=== PATIENT | female | born 1980 | race Caucasian/White ===

== ENCOUNTER 2017-09-12 18:34 | Emergency (ER) | payer OTHER ==
[2017-09-12] MEDS ORDERED: SODIUM CHLORIDE 0.9% 1,000 ML IV ONE (19:33)
[2017-09-12] MEDS ORDERED: ONDANSETRON 4 MG/2 ML VIAL IVP STA (19:33)
[2017-09-12] MEDS ORDERED: MAG HYDROX/AL HYDROX/SIMETH 30 ML UDC PO STA (19:33)
[2017-09-12] MEDS ORDERED: LORazepam 2 MG/ML VIAL IVP STA (19:33)
[2017-09-12] MEDS ORDERED: PANTOPRAZOLE 40 MG VIAL IVP STA (19:33)
[2017-09-12] MEDS ORDERED: LIDOCAINE VISCOUS 2% 15 ML UDC MM STA (19:33)
--- NOTE | 2017-09-12 19:35 | ED Physician Documentation ---
History of Present Illness - Stated complaint Stated Complaint: ETOH - Chief complaint Chief Complaint: MHE - History obtained from History obtained from: Patient, Family () - History of Present Illness Timing: Other (She has been trying to Quit drinking. She drinks wine all day. She is developed left upper abdominal pain with vomiting and diarrhea over the last few days and has been trying to cut back on her alcohol but the binges come in waves. She has never had a seizure. Feels shaky and out of it like she is going to . No blood in the vomit or diarrhea.) Review of Systems Ten Systems: 10 systems reviewed and negative Constitutional: reports: Fatigue. denies: Fever, Chills Cardiac: denies: Chest pain / pressure, Palpitations, Pedal edema, Calf pain Respiratory: denies: Dyspnea, Cough PD PAST MEDICAL HISTORY - Present Medications Home Medications: Ambulatory Orders Medication Instructions Recorded Confirmed Control 09/12/17 Lorazepam [Ativan] 1 mg PO TID PRN #15 tablet 09/12/17 Omeprazole [PriLOSEC] 20 mg PO DAILY #14 capsule 09/12/17 Ondansetron HCl [Zofran] 4 mg PO Q6H PRN #10 tablet 09/12/17 - Allergies Allergies/Adverse Reactions: Allergies Allergy/AdvReac Type Severity Reaction Status Date / Time No Known Drug Allergies Allergy Verified 09/12/17 18:45 PD ED PE NORMAL - Vitals Vital signs reviewed: Yes - General General: Alert and oriented X 3 (She is restless and shaky) - HEENT HEENT: PERRL, EOMI, Pharynx benign - Neck Neck: Supple, no meningeal sign, No bony TTP - Cardiac Cardiac: Other (Tachycardia) - Respiratory Respiratory: No respiratory distress, Clear bilaterally - Abdomen Abdomen: Normal bowel sounds, Soft, Non tender - Back Back: No CVA TTP, No spinal TTP - Extremities Extremities: No edema, No calf tenderness / cord - Neuro Neuro: Alert and oriented X 3, Normal speech - Psych Psych: Normal mood, Normal affect Results - Vitals Vitals: Vital Signs - 24 hr 09/12/17 09/12/17 18:39 21:12 Temperature 36.8 C Heart Rate 110 H 105 H Respiratory 22 18 Rate Blood Pressure 149/101 H 139/102 H O2 Saturation 99 98 Oxygen O2 Source Room air - Labs Labs: Laboratory Tests 09/12/17 09/12/17 09/12/17 19:21 19:49 19:49 WBC 3.9 L RBC 4.64 Hgb 15.1 Hct 43.1 MCV 92.9 MCH 32.5 H MCHC 34.9 RDW 12.7 Plt Count 110 L MPV 9.8 Neut # (Auto) 1.4 L Lymph # (Auto) 2.2 [place] # (Auto) 0.3 Eos # (Auto) 0.0 Baso # (Auto) 0.0 Absolute Nucleated RBC 0.00 Nucleated RBC % 0.1 VBG pH VBG pCO2 VBG pO2 VBG HCO3 VBG Total CO2 VBG O2 Saturation VBG Base Excess Sodium 135 Potassium 3.7 Chloride 99 L Carbon Dioxide 20 L Anion Gap 16.0 H BUN 17 Creatinine 0.7 Estimated GFR (MDRD) 95 Glucose 90 Calcium 8.7 Magnesium 2.0 Total Bilirubin 1.4 H AST 273 H ALT 163 H Alkaline Phosphatase 144 H Total Protein 7.5 Albumin 4.0 Globulin 3.5 Albumin/Globulin Ratio 1.1 Lipase 86 H Urine Color YELLOW Urine Clarity CLOUDY Urine pH 6.0 Ur Specific [place] 1.020 Urine Protein TRACE Urine Glucose (UA) NEGATIVE Urine Ketones TRACE Urine Occult Blood TRACE-INTA Urine Nitrite POSITIVE H Urine Bilirubin NEGATIVE Urine Urobilinogen 1 (NORMAL) Ur Leukocyte Esterase SMALL H Urine RBC 0-5 Urine WBC 6-10 H Ur Squamous Epith Cells FEW Squamous Urine Bacteria Moderate H Ur Microscopic Review INDICATED Urine Culture Comments INDICATED Urine HCG, Qual NEGATIVE Ethyl Alcohol 355.9 Serum Ketones NEGATIVE 09/12/17 19:49 WBC RBC Hgb Hct MCV MCH MCHC RDW Plt Count MPV Neut # (Auto) Lymph # (Auto) [place] # (Auto) Eos # (Auto) Baso # (Auto) Absolute Nucleated RBC Nucleated RBC % VBG pH 7.476 H VBG pCO2 28.8 L VBG pO2 45.0 VBG HCO3 20.8 L VBG Total CO2 21.7 L VBG O2 Saturation 76.3 VBG Base Excess -1.4 Sodium Potassium Chloride Carbon Dioxide Anion Gap BUN Creatinine Estimated GFR (MDRD) Glucose Calcium Magnesium Total Bilirubin AST ALT Alkaline Phosphatase Total Protein Albumin Globulin Albumin/Globulin Ratio Lipase Urine Color Urine Clarity Urine pH Ur Specific [place] Urine Protein Urine Glucose (UA) Urine Ketones Urine Occult Blood Urine Nitrite Urine Bilirubin Urine Urobilinogen Ur Leukocyte Esterase Urine RBC Urine WBC Ur Squamous Epith Cells Urine Bacteria Ur Microscopic Review Urine Culture Comments Urine HCG, Qual Ethyl Alcohol Serum Ketones PD MEDICAL DECISION MAKING - ED course ED course: This is a 37-year-old woman presents with her for help with alcohol. She is still intoxicated and she is evidence of alcoholic hepatitis. She felt better after medications for alcoholic gastritis here. She does not have symptoms referrable to UTI so no treatment is given now pending the culture. - Sepsis Event Vital Signs: Vital Signs - 24 hr 09/12/17 09/12/17 18:39 21:12 Temperature 36.8 C Heart Rate 110 H 105 H Respiratory 22 18 Rate Blood Pressure 149/101 H 139/102 H O2 Saturation 99 98 Oxygen O2 Source Room air Departure - Departure Disposition: 01 Home, Self Care Clinical Impression: Alcohol intoxication, Alcoholic liver disease Condition: Good Record reviewed to determine appropriate education?: Yes Instructions: Cirrhosis Liver Dc, ED Alcohol Intoxication, ED Alcohol Abuse Prescriptions: Lorazepam [Ativan] 1 mg PO TID PRN #15 tablet PRN Reason: Anxiety Omeprazole [PriLOSEC] 20 mg PO DAILY #14 capsule Ondansetron HCl [Zofran] 4 mg PO Q6H PRN #10 tablet PRN Reason: Nausea / Vomiting Comments: [place] drinking alcohol[place] for alcohol rehab, another option would be [facility] recovery services in [place], civilian agency. Their phone number is [phone]. Discharge Date/Time: 09/12/17 21:13
[2017-09-12 19:55] LABS: BASOPHILS % (AUTO) 0.7 %; HGB - HEMOGLOBIN 15.1 g/dL (12.0-16.0); LYMPHOCYTES # (AUTO) 2.2 10^3/uL (1.5-3.5); LYMPHOCYTES % (AUTO) 56.1 %; MEAN CORPUSCULAR HEMOGLOBIN 32.5 pg (27.0-31.0); MEAN CORPUSCULAR HGB CONC 34.9 g/dL (32.0-36.0); MEAN CORPUSCULAR VOLUME 92.9 fL (81.0-99.0); MEAN PLATELET VOLUME 9.8 fL (7.9-10.8); MONOCYTES # (AUTO) 0.3 10^3/uL (0.0-1.0); MONOCYTES % (AUTO) 6.5 %; NEUTROPHILS # (AUTO) 1.4 10^3/uL (1.5-6.6); NEUTROPHILS % (AUTO) 36.7 %; PLT - PLATELET COUNT 110 10^3/uL (130-450); RED BLOOD COUNT 4.64 10^6/uL (4.20-5.40); RED CELL DISTRIBUTION WIDTH 12.7 % (12.0-15.0); WHITE BLOOD COUNT 3.9 x10^3/uL (4.8-10.8)
[2017-09-12 19:56] LABS: VBG PCO2 28.8 mmHg (41-51); VBG PH 7.476 (7.31-7.41)
[2017-09-12 19:57] LABS: VBG BASE EXCESS -1.4 mmol/L ([, -2 - +2]); VBG TOTAL CO2 21.7 mmol/L (24-29)
[2017-09-12 20:01] LABS: BILIRUBIN,URINE NEGATIVE (NEGATIVE); GLUCOSE, URINE (UA) NEGATIVE (NEGATIVE); KETONES,URINE (UA) TRACE mg/dL (NEGATIVE); LEUKOCYTE ESTERASE, URINE SMALL (NEGATIVE); NITRITE,URINE POSITIVE (NEGATIVE); OCCULT BLOOD,URINE TRACE-INTA (NEGATIVE); PROTEIN,URINE TRACE mg/dL (NEGATIVE); UROBILINOGEN,URINE 1 (NORMAL) E.U./dL (NORMAL)
[2017-09-12 20:04] LABS: CLARITY,URINE CLOUDY (CLEAR); HCG UR QUAL NEGATIVE
[2017-09-12 20:04] LABS: KETONES, SERUM (ACETEST) NEGATIVE (NEGATIVE)
[2017-09-12 20:07] LABS: ALBUMIN/GLOBULIN RATIO 1.1 (1.0-2.2); ALKALINE PHOSPHATASE 144 IU/L (42-121); ALT ALANINE AMINOTRANSFERASE 163 IU/L (10-60); AST ASPARTATE AMINOTRANSFERASE 273 IU/L (10-42); BILIRUBIN,TOTAL 1.4 mg/dL (0.2-1.0); BUN - BLOOD UREA NITROGEN 17 mg/dL (6-20); CALCIUM 8.7 mg/dL (8.5-10.3); CARBON DIOXIDE - CO2 20 mmol/L (21-32); CHLORIDE 99 mmol/L (101-111); CREATININE 0.7 mg/dL (0.4-1.0); GFR - MDRD 95 (>89); GLUCOSE 90 mg/dL (70-100); LIPASE 86 U/L (22-51); SODIUM 135 mmol/L (135-145); TOTAL PROTEIN 7.5 g/dL (6.7-8.2)
[2017-09-12 20:17] LABS: RBC,URINE 0-5 /HPF (0-5); SQUAMOUS EPITHELIAL CELL,UR FEW Squamous (<= Few)
[2017-09-12 20:18] LABS: BACTERIA,URINE Moderate /HPF (None Seen)
[2017-09-12] MEDS ORDERED: LORazepam 0.5 MG TABLET PO STA (20:53)
[2017-09-12] MEDS ORDERED: ONDANSETRON ODT 4 MG Prepack 2 TL STA (20:53)
[2017-09-12 21:14] VITALS: BP 139/102
== END 2017-09-12 21:13 | disposition home or self-care (01) ==
LOC: ED 18:34
DX: F10.129 Alcohol abuse with intoxication, unspecified (principal); K70.9 Alcoholic liver disease, unspecified; R11.11 Vomiting without nausea; R00.0 Tachycardia, unspecified
CPT/HCPCS: 80053; 80320; 81001; 81025; 82009; 82803; 83690; 83735; 85025; 87086; 87181; 96361; 96374; 99283; A9270; J2060; 36415; 81003

== ENCOUNTER 2017-12-07 01:22 | Emergency (ER) | payer OTHER ==
[2017-12-07] MEDS ORDERED: FOLIC ACID INJ 1 MG, THIAMINE INJ 100 MG, MAGNESIUM SULFATE 2 GM, MULTIVITAMIN 10 ML in... IV STA ×5 (01:55)
--- NOTE | 2017-12-07 01:58 | ED Physician Documentation ---
History of Present Illness - Stated complaint Stated Complaint: DRANK TOO MUCH ALCOHOL - Chief complaint Chief Complaint: MHE - History obtained from History obtained from: Patient - History of Present Illness Timing: How many years ago (1) - Additonal information Additional information: 37-year-old female with an increasing alcohol problem over the past year he has come in this evening for treatment. She states that she has been having a problem with alcohol binges and she feels that when she is sober she does not need help and then she realizes that she really does need help. She has been into a detox facility earlier this year in September and she spent 2 days there felt well and decided to go home as she did not feel that that was a facility that was going to provide her with the help that she needed. She reports that she was sent home from [place] by the because of her drinking and the lack of facilities there to treat. She is come back to the [facility] here at [facility] and she is finding a similar situation here Review of Systems Constitutional: denies: Fever, Chills, Myalgias Eyes: denies: Decreased vision Ears: denies: Ear pain Nose: denies: Congestion Throat: denies: Sore throat Cardiac: denies: Chest pain / pressure, Palpitations Respiratory: denies: Dyspnea, Cough GI: reports: Nausea. denies: Abdominal Pain, Vomiting : denies: Dysuria, Frequency Skin: denies: Rash Musculoskeletal: denies: Neck pain, Back pain, Extremity pain Neurologic: denies: Generalized weakness, Focal weakness, Numbness PD PAST MEDICAL HISTORY - Past Medical History Past Medical History: Yes Cardiovascular: None Respiratory: None Neuro: None Endocrine/Autoimmune: None GI: None MEDICAL SOCIAL WORKER: None : None HEENT: None Psych: Anxiety Musculoskeletal: None Derm: None Other Past Medical History: ALCOHOLISM by admission... 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 - Present Medications Home Medications: Ambulatory Orders Medication Instructions Recorded Confirmed Control 09/12/17 Lorazepam [Ativan] 1 mg PO TID PRN #15 tablet 09/12/17 Omeprazole [PriLOSEC] 20 mg PO DAILY #14 capsule 09/12/17 Ondansetron HCl [Zofran] 4 mg PO Q6H PRN #10 tablet 09/12/17 - Allergies Allergies/Adverse Reactions: Allergies Allergy/AdvReac Type Severity Reaction Status Date / Time No Known Drug Allergies Allergy Verified 12/07/17 01:37 - Social History Does the pt smoke?: No Smoking Status: Never smoker Does the pt drink ETOH?: Yes Does the pt have substance abuse?: Yes Substance Use and Type: Other - Immunizations Immunizations are current?: Yes - POLST Patient has POLST: No PD ED PE NORMAL - Vitals Vital signs reviewed: Yes (tachy ) - General General: Alert and oriented X 3, Well developed/nourished, Other (teary eyed and emotional ) - HEENT HEENT: Atraumatic, PERRL, EOMI - Neck Neck: Supple, no meningeal sign, No bony TTP - Cardiac Cardiac: RRR, No murmur - Respiratory Respiratory: No respiratory distress, Clear bilaterally - Abdomen Abdomen: Soft, Non tender - Back Back: No CVA TTP, No spinal TTP - Derm Derm: Normal color, Warm and dry, No rash - Extremities Extremities: No deformity, No edema - Neuro Neuro: Alert and oriented X 3, toolroom attendant 2-12 intact, No motor deficit, No sensory deficit, Normal speech Eye Opening: Spontaneous Motor: Obeys Commands Verbal: Oriented GCS Score: 15 - Psych Psych: Normal mood, Normal affect Results - Vitals Vitals: Vital Signs - 24 hr 12/07/17 12/07/17 12/07/17 01:34 01:43 02:26 Temperature 36.9 C Heart Rate 109 H 86 Respiratory 18 17 17 Rate Blood Pressure 133/95 H 109/74 O2 Saturation 99 100 12/07/17 12/07/17 12/07/17 02:57 03:30 04:43 Temperature Heart Rate 90 89 88 Respiratory 15 14 14 Rate Blood Pressure 106/71 102/71 105/74 O2 Saturation 95 97 94 12/07/17 12/07/17 12/07/17 05:46 06:19 06:43 Temperature Heart Rate 81 83 Respiratory 13 13 Rate Blood Pressure 111/81 H O2 Saturation 96 95 99 Oxygen O2 Source Room air - Labs Labs: Laboratory Tests 12/07/17 12/07/17 02:03 02:03 WBC 5.4 RBC 4.91 Hgb 15.3 Hct 44.6 MCV 90.8 MCH 31.3 H MCHC 34.4 RDW 13.7 Plt Count 170 MPV 10.1 Neut # (Auto) 2.8 Lymph # (Auto) 2.2 [place] # (Auto) 0.4 Eos # (Auto) 0.0 Baso # (Auto) 0.0 Absolute Nucleated RBC 0.00 Nucleated RBC % 0.0 Sodium 139 Potassium 3.6 Chloride 101 Carbon Dioxide 27 Anion Gap 11.0 BUN 11 Creatinine 0.7 Estimated GFR (MDRD) 95 Glucose 107 H Calcium 8.4 L Total Bilirubin 0.6 AST 65 H ALT 73 H Alkaline Phosphatase 59 Total Protein 7.9 Albumin 4.4 Globulin 3.5 Albumin/Globulin Ratio 1.3 Lipase 26 Ethyl Alcohol 241.1 PD MEDICAL DECISION MAKING - ED course Complexity details: reviewed old records, reviewed results, re-evaluated patient, considered differential, d/w patient ED course: 37 y/o female with a history of alcoholism is requesting services. She is intoxicated and she is administered a banana bag IV and ativan while awaiting the social welfare administrator in the morning. At shift change care of the patient is turned over to Dr. Palacios. Departure - Departure Clinical Impression: Alcohol intoxication Qualifiers: Complication of substance-induced condition: uncomplicated Qualified Code(s): F10.920 - Alcohol use, unspecified with intoxication, uncomplicated Condition: Stable Instructions: ED Alcohol Intoxication Follow-Up: Kevan Mckeon MD [Primary Care Provider] -
[2017-12-07 02:12] LABS: BASOPHILS % (AUTO) 0.7 %; EOSINOPHILS % (AUTO) 0.5 %; HGB - HEMOGLOBIN 15.3 g/dL (12.0-16.0); LYMPHOCYTES # (AUTO) 2.2 10^3/uL (1.5-3.5); LYMPHOCYTES % (AUTO) 40.6 %; MEAN CORPUSCULAR HEMOGLOBIN 31.3 pg (27.0-31.0); MEAN CORPUSCULAR HGB CONC 34.4 g/dL (32.0-36.0); MEAN CORPUSCULAR VOLUME 90.8 fL (81.0-99.0); MEAN PLATELET VOLUME 10.1 fL (7.9-10.8); MONOCYTES # (AUTO) 0.4 10^3/uL (0.0-1.0); MONOCYTES % (AUTO) 6.7 %; NEUTROPHILS # (AUTO) 2.8 10^3/uL (1.5-6.6); NEUTROPHILS % (AUTO) 51.5 %; PLT - PLATELET COUNT 170 10^3/uL (130-450); RED BLOOD COUNT 4.91 10^6/uL (4.20-5.40); RED CELL DISTRIBUTION WIDTH 13.7 % (12.0-15.0); WHITE BLOOD COUNT 5.4 x10^3/uL (4.8-10.8)
[2017-12-07] MEDS ORDERED: KETOROLAC 60 MG/2 ML VIAL IVP STA (02:13)
[2017-12-07] MEDS ORDERED: LORazepam 2 MG/ML VIAL IVP STA (02:13)
[2017-12-07] MEDS ORDERED: MAGNESIUM SULFATE 1 GM/2 ML VIAL ONE (02:23)
[2017-12-07] MEDS ORDERED: THIAMINE 100 MG/1 ML 2 ML MDV ONE (02:27)
[2017-12-07 02:30] LABS: ALBUMIN 4.4 g/dL (3.2-5.5); ALBUMIN/GLOBULIN RATIO 1.3 (1.0-2.2); BILIRUBIN,TOTAL 0.6 mg/dL (0.2-1.0); CALCIUM 8.4 mg/dL (8.5-10.3); CREATININE 0.7 mg/dL (0.4-1.0); TOTAL PROTEIN 7.9 g/dL (6.7-8.2)
[2017-12-07 06:20] VITALS: BP 111/81
[2017-12-07] MEDS ORDERED: LORazepam 0.5 MG TABLET PO STA (09:01)
--- NOTE | 2017-12-23 12:20 | ED Physician Documentation ---
ED Addendum - Addendum Addendum: The patient was doing well on recheck and able to go home. Disposition: discharged home stable condition. 12/23/17 12:20
== END 2017-12-07 11:18 | disposition home or self-care (01) ==
LOC: ED 01:22
DX: F10.129 Alcohol abuse with intoxication, unspecified (principal)
CPT/HCPCS: 36415; 80053; 80320; 83690; 85025; 96365; 96366; 96375; 99283; 99284; A9270; J2060; J3411

== ENCOUNTER 2018-03-12 15:47 | Emergency (ER) | payer OTHER ==
[2018-03-12 16:50] LABS: MUDS CUTOFF CONCENTRATIONS CUTOFF CONC BELOW:
[2018-03-12 16:55] LABS: BILIRUBIN,URINE NEGATIVE (NEGATIVE); GLUCOSE, URINE (UA) NEGATIVE (NEGATIVE); KETONES,URINE (UA) TRACE mg/dL (NEGATIVE); LEUKOCYTE ESTERASE, URINE NEGATIVE (NEGATIVE); NITRITE,URINE NEGATIVE (NEGATIVE); OCCULT BLOOD,URINE NEGATIVE (NEGATIVE); PROTEIN,URINE NEGATIVE (NEGATIVE); UROBILINOGEN,URINE 0.2 (NORMAL) E.U./dL (NORMAL)
[2018-03-12 16:58] LABS: CLARITY,URINE CLEAR (CLEAR); HCG UR QUAL NEGATIVE
[2018-03-12 17:10] LABS: BASOPHILS % (AUTO) 0.8 %; EOSINOPHILS % (AUTO) 0.2 %; HGB - HEMOGLOBIN 15.4 g/dL (12.0-16.0); LYMPHOCYTES # (AUTO) 2.3 10^3/uL (1.5-3.5); LYMPHOCYTES % (AUTO) 40.5 %; MEAN CORPUSCULAR HEMOGLOBIN 30.1 pg (27.0-31.0); MEAN CORPUSCULAR VOLUME 91.2 fL (81.0-99.0); MONOCYTES # (AUTO) 0.3 10^3/uL (0.0-1.0); MONOCYTES % (AUTO) 5.7 %; NEUTROPHILS % (AUTO) 52.8 %; PLT - PLATELET COUNT 156 10^3/uL (130-450); RED BLOOD COUNT 5.12 10^6/uL (4.20-5.40); RED CELL DISTRIBUTION WIDTH 13.6 % (12.0-15.0); WHITE BLOOD COUNT 5.7 x10^3/uL (4.8-10.8)
[2018-03-12 17:19] LABS: AMPHETAMINE SCREEN,URINE NEGATIVE (NEGATIVE); BENZODIAZEPINES SCREEN, URINE NEGATIVE (NEGATIVE); COCAINE SCREEN URINE NEGATIVE (NEGATIVE); METHADONE SCREEN, URINE NEGATIVE (NEGATIVE); METHAMPHETAMINES SCREEN, URINE NEGATIVE (NEGATIVE); OPIATE SCREEN, URINE NEGATIVE (NEGATIVE); OXYCODONE SCREEN, URINE NEGATIVE (NEGATIVE); PROPOXYPHENE SCREEN, URINE NEGATIVE (NEGATIVE); TRICYCLIC ANTIDEPRESSANT,URINE NEGATIVE (NEGATIVE)
[2018-03-12 17:23] LABS: ALBUMIN 4.4 g/dL (3.2-5.5); ALBUMIN/GLOBULIN RATIO 1.2 (1.0-2.2); BILIRUBIN,TOTAL 0.5 mg/dL (0.2-1.0); CALCIUM 9.2 mg/dL (8.5-10.3); CREATININE 0.7 mg/dL (0.4-1.0); TOTAL PROTEIN 8.2 g/dL (6.7-8.2)
--- NOTE | 2018-03-12 18:27 | ED Physician Documentation ---
History of Present Illness - Stated complaint Stated Complaint: ETOH DETOX - Chief complaint Chief Complaint: MHE - Additonal information Additional information: 37-year-old female presents the emergency department complaining of alcohol depe ndence and requesting help getting into detox. The patient denies suicidal homicidal ideations. The patient denies any acute medical complaint. The patient last drank some wine recently. No other acute symptoms or complaints. Review of Systems Constitutional: denies: Fever Eyes: denies: Discharge Ears: denies: Ear pain Nose: denies: Congestion Throat: denies: Sore throat Cardiac: denies: Chest pain / pressure Respiratory: denies: Cough GI: denies: Abdominal Pain : denies: Dysuria Skin: denies: Rash Musculoskeletal: denies: Neck pain Neurologic: denies: Generalized weakness Psychiatric: denies: Suicidal, Homicidal PD PAST MEDICAL HISTORY - Past Medical History Past Medical History: Yes Cardiovascular: None Respiratory: None Neuro: None Endocrine/Autoimmune: None GI: None CLIENT REPORTING ASSOCIATE: None : None HEENT: None Psych: Anxiety Musculoskeletal: None Derm: None - Past Surgical History Past Surgical History: Yes /CLIENT REPORTING ASSOCIATE: section - Present Medications Home Medications: Ambulatory Orders Medication Instructions Recorded Confirmed Control 09/12/17 Ondansetron HCl [Zofran] 4 mg PO Q6H PRN #20 tablet 12/07/17 Naproxen 500 mg PO BID PRN #60 tablet 03/12/18 Ondansetron HCl [Zofran] 4 mg PO Q6HR PRN #30 tablet 03/12/18 chlordiazePOXIDE [Librium] 5 mg PO Q6H PRN #20 capsule 03/12/18 - Allergies Allergies/Adverse Reactions: Allergies Allergy/AdvReac Type Severity Reaction Status Date / Time No Known Drug Allergies Allergy Verified 03/12/18 15:53 - Social History Does the pt smoke?: No Smoking Status: Never smoker Does the pt drink ETOH?: Yes Does the pt have substance abuse?: Yes - Immunizations Immunizations are current?: Yes - POLST Patient has POLST: No PD ED PE NORMAL - General General: Alert and oriented X 3, No acute distress - HEENT HEENT: Atraumatic, PERRL, EOMI, Ears normal - Cardiac Cardiac: RRR - Respiratory Respiratory: No respiratory distress - Derm Derm: Normal color - Extremities Extremities: No deformity - Neuro Neuro: Alert and oriented X 3, Normal speech - Psych Psych: Normal affect Results - Vitals Vitals: Vital Signs - 24 hr 03/12/18 03/12/18 03/12/18 15:50 15:53 18:49 Temperature 36 C L 37.1 C Heart Rate 120 H 120 H 98 Respiratory 20 20 16 Rate Blood Pressure 135/71 H 135/71 H 117/80 O2 Saturation 96 96 94 Oxygen O2 Source Room air - Labs Labs: Laboratory Tests 03/12/18 03/12/18 03/12/18 16:43 16:46 17:00 WBC 5.7 RBC 5.12 Hgb 15.4 Hct 46.7 MCV 91.2 MCH 30.1 MCHC 33.0 RDW 13.6 Plt Count 156 MPV 10.0 Neut # (Auto) 3.0 Lymph # (Auto) 2.3 [place] # (Auto) 0.3 Eos # (Auto) 0.0 Baso # (Auto) 0.0 Absolute Nucleated RBC 0.01 Nucleated RBC % 0.2 Sodium Potassium Chloride Carbon Dioxide Anion Gap BUN Creatinine Estimated GFR (MDRD) Glucose Calcium Total Bilirubin AST ALT Alkaline Phosphatase Total Protein Albumin Globulin Albumin/Globulin Ratio Lipase Urine Color YELLOW Urine Clarity CLEAR Urine pH 6.0 Ur Specific [place] 1.025 Urine Protein NEGATIVE Urine Glucose (UA) NEGATIVE Urine Ketones TRACE Urine Occult Blood NEGATIVE Urine Nitrite NEGATIVE Urine Bilirubin NEGATIVE Urine Urobilinogen 0.2 (NORMAL) Ur Leukocyte Esterase NEGATIVE Ur Microscopic Review NOT INDICATED Urine Culture Comments NOT INDICATED Urine HCG, Qual NEGATIVE Urine Opiates Screen NEGATIVE Ur Oxycodone Screen NEGATIVE Urine Methadone Screen NEGATIVE Ur Propoxyphene Screen NEGATIVE Ur Barbiturates Screen NEGATIVE Ur Tricyclics Screen NEGATIVE Ur Phencyclidine Scrn NEGATIVE Ur Amphetamine Screen NEGATIVE U Methamphetamines Scrn NEGATIVE U Benzodiazepines Scrn NEGATIVE Urine Cocaine Screen NEGATIVE U Cannabinoids Screen NEGATIVE Ethyl Alcohol 03/12/18 17:00 WBC RBC Hgb Hct MCV MCH MCHC RDW Plt Count MPV Neut # (Auto) Lymph # (Auto) [place] # (Auto) Eos # (Auto) Baso # (Auto) Absolute Nucleated RBC Nucleated RBC % Sodium 138 Potassium 3.7 Chloride 101 Carbon Dioxide 25 Anion Gap 12.0 BUN 13 Creatinine 0.7 Estimated GFR (MDRD) 95 Glucose 98 Calcium 9.2 Total Bilirubin 0.5 AST 50 H ALT 72 H Alkaline Phosphatase 51 Total Protein 8.2 Albumin 4.4 Globulin 3.8 Albumin/Globulin Ratio 1.2 Lipase 25 Urine Color Urine Clarity Urine pH Ur Specific [place] Urine Protein Urine Glucose (UA) Urine Ketones Urine Occult Blood Urine Nitrite Urine Bilirubin Urine Urobilinogen Ur Leukocyte Esterase Ur Microscopic Review Urine Culture Comments Urine HCG, Qual Urine Opiates Screen Ur Oxycodone Screen Urine Methadone Screen Ur Propoxyphene Screen Ur Barbiturates Screen Ur Tricyclics Screen Ur Phencyclidine Scrn Ur Amphetamine Screen U Methamphetamines Scrn U Benzodiazepines Scrn Urine Cocaine Screen U Cannabinoids Screen Ethyl Alcohol 223.9 PD MEDICAL DECISION MAKING - ED course ED course: Medically stable for Detox The patient was seen by social work and they have arranged for the patient to get into detox. The patient is pending placement The patient has been accepted into a detox center, the patient is stable at this point for inpatient detox. The patient's will drive her to that facility. I discussed warning signs and recommended returning for any worsening or any concerns. Departure - Departure Disposition: 01 Home, Self Care Clinical Impression: Alcohol abuse Alcohol dependence Qualifiers: Substance use status: uncomplicated Qualified Code(s): F10.20 - Alcohol dependence, uncomplicated Condition: Good Instructions: Alcoholism Prescriptions: Ondansetron HCl [Zofran] 4 mg PO Q6HR PRN #30 tablet PRN Reason: Nausea / Vomiting chlordiazePOXIDE [Librium] 5 mg PO Q6H PRN #20 capsule PRN Reason: Alcohol Withdrawal Naproxen 500 mg PO BID PRN #60 tablet PRN Reason: Pain Comments: Please go straight to the detox center that has excepted you for management of your alcohol dependence Please return to the emergency department for any worsening or any concerns
[2018-03-12 18:49] VITALS: BP 117/80
== END 2018-03-12 20:27 | disposition home or self-care (01) ==
LOC: ED 15:47
DX: F10.20 Alcohol dependence, uncomplicated (principal)
CPT/HCPCS: 36415; 80053; 80306; 80320; 81001; 81003; 81025; 83690; 85025; 87086; 99283

== ENCOUNTER 2018-05-26 07:44 | Emergency (ER) | payer OTHER ==
[2018-05-26 08:17] LABS: BILIRUBIN,URINE NEGATIVE (NEGATIVE); GLUCOSE, URINE (UA) NEGATIVE (NEGATIVE); KETONES,URINE (UA) 15 mg/dL (NEGATIVE); LEUKOCYTE ESTERASE, URINE NEGATIVE (NEGATIVE); NITRITE,URINE NEGATIVE (NEGATIVE); OCCULT BLOOD,URINE SMALL (NEGATIVE); PROTEIN,URINE TRACE mg/dL (NEGATIVE); UROBILINOGEN,URINE 1 (NORMAL) E.U./dL (NORMAL)
[2018-05-26 08:19] LABS: CLARITY,URINE CLOUDY (CLEAR)
[2018-05-26 08:20] LABS: HCG UR QUAL NEGATIVE
[2018-05-26] MEDS ORDERED: LIDOCAINE VISCOUS 2% 15 ML UDC MM STA (08:24)
[2018-05-26] MEDS ORDERED: MAG HYDROX/AL HYDROX/SIMETH 30 ML UDC PO STA (08:24)
[2018-05-26] MEDS ORDERED: LORazepam 1 MG TABLET PO STA (08:24)
[2018-05-26 08:25] LABS: BACTERIA,URINE Few /HPF (None Seen); MUCUS,URINE Few Strands; RBC,URINE 0-5 /HPF (0-5); SQUAMOUS EPITHELIAL CELL,UR FEW Squamous (<= Few)
--- NOTE | 2018-05-26 08:32 | ED Physician Documentation ---
History of Present Illness - Stated complaint Stated Complaint: ETOH WITHDRAWLS/DIFFICULTY BREATHING - Chief complaint Chief Complaint: General - History obtained from History obtained from: Patient - History of Present Illness Timing: Last night - Additonal information Additional information: Patient is a 38-year-old chronic alcoholic, who presents with alcohol withdrawal symptoms, including anxiety, myalgias, shaking, nausea, and "hot and cold sweats." Her symptoms started last night. She drank alcohol this morning in an effort to subdue her symptoms. She reports a history of alcoholism for years. She briefly entered a detox program about 1 month ago, but left prior to completion. Review of Systems Constitutional: reports: Sweats Ears: denies: Tinnitus/ringing Nose: denies: Congestion Throat: denies: Sore throat Cardiac: denies: Chest pain / pressure Respiratory: denies: Dyspnea, Cough GI: reports: Nausea, Vomiting. denies: Abdominal Pain : denies: Dysuria Skin: denies: Rash Neurologic: reports: Headache, Other (tremulousness). denies: Focal weakness, Numbness Psychiatric: reports: Anxiety PD PAST MEDICAL HISTORY - Past Medical History Cardiovascular: None Respiratory: None Neuro: None Endocrine/Autoimmune: None GI: None CORPORATE DRIVER: None : None HEENT: None Psych: Anxiety Musculoskeletal: None Derm: None - Past Surgical History Past Surgical History: Yes /CORPORATE DRIVER: section - Present Medications Home Medications: Ambulatory Orders Medication Instructions Recorded Confirmed Control 09/12/17 chlordiazePOXIDE [Librium] 5 mg PO Q6H PRN #20 capsule 03/12/18 Lorazepam [Ativan] 1 mg PO Q6HR PRN #15 tablet 05/26/18 raNITIdine HCl [Ranitidine HCl] 150 mg PO BID #30 tablet 05/26/18 - Allergies Allergies/Adverse Reactions: Allergies Allergy/AdvReac Type Severity Reaction Status Date / Time No Known Drug Allergies Allergy Verified 05/26/18 07:57 - Social History Does the pt smoke?: No Smoking Status: Never smoker Does the pt drink ETOH?: Yes Does the pt have substance abuse?: Yes - Immunizations Immunizations are current?: Yes - POLST Patient has POLST: No PD ED PE NORMAL - Vitals Vital signs reviewed: Yes (hypertensive and tachycardic) - General General: Alert and oriented X 3, Well developed/nourished, Other (Appears tremulous, and has odor of alcohol on her breath.) - HEENT HEENT: Atraumatic, EOMI, Pharynx benign - Neck Neck: No adenopathy, No JVD - Cardiac Cardiac: Other (Rapid rate, regular rhythm.) - Respiratory Respiratory: Clear bilaterally - Abdomen Abdomen: Soft, Other (Mild tenderness to palpation in the LUQ/epigastric region. No rebound or guarding.) - Back Back: No CVA TTP - Derm Derm: No rash - Extremities Extremities: No edema, No calf tenderness / cord - Neuro Neuro: Alert and oriented X 3, No motor deficit, No sensory deficit Results - Vitals Vitals: Oxygen O2 Source Room air - Labs Labs: Laboratory Tests 05/26/18 05/26/18 05/26/18 08:00 08:48 08:48 WBC 3.6 L RBC 4.73 Hgb 14.6 Hct 43.7 MCV 92.4 MCH 30.9 MCHC 33.5 RDW 13.8 Plt Count 148 MPV 9.6 Neut # (Auto) 2.2 Lymph # (Auto) 1.1 L [place] # (Auto) 0.3 Eos # (Auto) 0.0 Baso # (Auto) 0.0 Absolute Nucleated RBC 0.00 Nucleated RBC % 0.0 Sodium 136 Potassium 3.6 Chloride 100 L Carbon Dioxide 20 L Anion Gap 16.0 H BUN 14 Creatinine 0.6 Estimated GFR (MDRD) 113 Glucose 95 Calcium 8.3 L Total Bilirubin 2.0 H AST 528 H ALT 311 H Alkaline Phosphatase 117 Total Protein 8.1 Albumin 4.5 Globulin 3.6 Albumin/Globulin Ratio 1.3 Lipase 34 Urine Color YELLOW Urine Clarity CLOUDY Urine pH 6.0 Ur Specific [place] 1.025 Urine Protein TRACE Urine Glucose (UA) NEGATIVE Urine Ketones 15 H Urine Occult Blood SMALL H Urine Nitrite NEGATIVE Urine Bilirubin NEGATIVE Urine Urobilinogen 1 (NORMAL) Ur Leukocyte Esterase NEGATIVE Urine RBC 0-5 Urine WBC 0-3 Ur Squamous Epith Cells FEW Squamous Urine Bacteria Few Urine Mucus Few Strands Ur Microscopic Review INDICATED Urine Culture Comments NOT INDICATED Urine HCG, Qual NEGATIVE Ethyl Alcohol 97.9 PD MEDICAL DECISION MAKING - ED course Complexity details: reviewed old records, reviewed results, re-evaluated patient, considered differential, d/w patient, d/w family ED course: The patient's presentation is most consistent with alcohol withdrawal symptoms, alcoholic gastritis, and alcoholic liver disease. Treatment in the emergency department included administration of GI cocktail, and Ativan 1 mg orally. The GI cocktail significantly improved her left upper quadrant/epigastric discomfort. Her nausea resolved. Her generalized anxiety also improved significantly. She is being discharged with prescriptions for ranitidine and for Ativan. I discussed with her the diagnosis, the fact that her liver enzymes are elevated, the importance of outpatient follow-up including treatment for alcoholism, as well as potentially worrisome signs or symptoms that should prompt reevaluation in the emergency department. Departure - Departure Disposition: 01 Home, Self Care Clinical Impression: Alcoholic liver disease Alcohol dependence Qualifiers: Substance use status: unspecified alcohol-induced disorder Qualified Code(s): F10.29 - Alcohol dependence with unspecified alcohol-induced disorder Alcoholic gastritis Qualifiers: Chronicity: unspecified Gastritis bleeding: without bleeding Qualified Code(s): K29.20 - Alcoholic gastritis without bleeding Condition: Stable Instructions: ED Gastritis, ED Alcohol Abuse Follow-Up: Kevan Mckeon MD [Primary Care Provider] - Prescriptions: Lorazepam [Ativan] 1 mg PO Q6HR PRN #15 tablet PRN Reason: Alcohol Withdrawal raNITIdine HCl [Ranitidine HCl] 150 mg PO BID #30 tablet Comments: Try to refrain from drinking alcohol. Take ranitidine twice daily as prescribed. You can use liquid antacid, such as Maalox or Mylanta if you develop recurrent epigastric discomfort. You can use Ativan as prescribed if needed for alcohol withdrawal symptoms. Follow-up with your primary physician within 1 to 2 weeks. Call to schedule appointment. Consider detox treatment. Return to the emergency department if you develop increasing abdominal pain, persistent vomiting, increasing agitation, or otherwise worsening symptoms. Discharge Date/Time: 05/26/18 11:16
[2018-05-26 08:56] LABS: BASOPHILS % (AUTO) 0.9 %; EOSINOPHILS % (AUTO) 0.2 %; HGB - HEMOGLOBIN 14.6 g/dL (12.0-16.0); LYMPHOCYTES # (AUTO) 1.1 10^3/uL (1.5-3.5); LYMPHOCYTES % (AUTO) 31.1 %; MEAN CORPUSCULAR HEMOGLOBIN 30.9 pg (27.0-31.0); MEAN CORPUSCULAR HGB CONC 33.5 g/dL (32.0-36.0); MEAN CORPUSCULAR VOLUME 92.4 fL (81.0-99.0); MEAN PLATELET VOLUME 9.6 fL (7.9-10.8); MONOCYTES # (AUTO) 0.3 10^3/uL (0.0-1.0); MONOCYTES % (AUTO) 7.7 %; NEUTROPHILS # (AUTO) 2.2 10^3/uL (1.5-6.6); NEUTROPHILS % (AUTO) 60.1 %; PLT - PLATELET COUNT 148 10^3/uL (130-450); RED BLOOD COUNT 4.73 10^6/uL (4.20-5.40); RED CELL DISTRIBUTION WIDTH 13.8 % (12.0-15.0); WHITE BLOOD COUNT 3.6 x10^3/uL (4.8-10.8)
[2018-05-26 09:17] LABS: ALBUMIN 4.5 g/dL (3.2-5.5); ALBUMIN/GLOBULIN RATIO 1.3 (1.0-2.2); CALCIUM 8.3 mg/dL (8.5-10.3); CREATININE 0.6 mg/dL (0.4-1.0); TOTAL PROTEIN 8.1 g/dL (6.7-8.2)
[2018-05-26 11:16] VITALS: BP 140/98
== END 2018-05-26 11:16 | disposition home or self-care (01) ==
LOC: ED 07:44
DX: K70.9 Alcoholic liver disease, unspecified (principal); F10.29 Alcohol dependence with unspecified alcohol-induced disorder; K29.20 Alcoholic gastritis without bleeding; F41.9 Anxiety disorder, unspecified
CPT/HCPCS: 36415; 80053; 80320; 81001; 81025; 83690; 85025; 99283; 99284; A9270; J8499; 81003; 87086

== ENCOUNTER 2018-09-04 10:15 | Observation (INO) | payer OTHER ==
[2018-09-04] MEDS ORDERED: SODIUM CHLORIDE 0.9% 1,000 ML IV ONE ×2 (10:27→14:20)
[2018-09-04] MEDS ORDERED: LORazepam 2 MG/ML VIAL IVP STA (10:27)
[2018-09-04] MEDS ORDERED: FOLIC ACID INJ 1 MG, THIAMINE INJ 100 MG, MAGNESIUM SULFATE 2 GM, MULTIVITAMIN 10 ML in... IV STA ×5 (10:27)
[2018-09-04 11:08] LABS: BASOPHILS % (AUTO) 0.4 %; EOSINOPHILS # (AUTO) 0.1 10^3/uL (0.0-0.7); HGB - HEMOGLOBIN 14.2 g/dL (12.0-16.0); LYMPHOCYTES # (AUTO) 1.3 10^3/uL (1.5-3.5); LYMPHOCYTES % (AUTO) 25.9 %; MEAN CORPUSCULAR HEMOGLOBIN 32.4 pg (27.0-31.0); MEAN CORPUSCULAR HGB CONC 35.8 g/dL (32.0-36.0); MEAN CORPUSCULAR VOLUME 90.6 fL (81.0-99.0); MEAN PLATELET VOLUME 12.9 fL (7.9-10.8); MONOCYTES # (AUTO) 0.4 10^3/uL (0.0-1.0); MONOCYTES % (AUTO) 6.8 %; NEUTROPHILS # (AUTO) 3.4 10^3/uL (1.5-6.6); NEUTROPHILS % (AUTO) 65.7 %; PLT - PLATELET COUNT 79 10^3/uL (130-450); RED BLOOD COUNT 4.38 10^6/uL (4.20-5.40); RED CELL DISTRIBUTION WIDTH 14.8 % (12.0-15.0); WHITE BLOOD COUNT 5.1 x10^3/uL (4.8-10.8)
[2018-09-04 11:19] LABS: INR 1.2 (0.8-1.2)
[2018-09-04 11:26] LABS: ALBUMIN 3.7 g/dL (3.2-5.5); ALBUMIN/GLOBULIN RATIO 1.1 (1.0-2.2); BILIRUBIN,TOTAL 8.3 mg/dL (0.2-1.0); CALCIUM 8.8 mg/dL (8.5-10.3); CREATININE 0.5 mg/dL (0.4-1.0); TOTAL PROTEIN 7.1 g/dL (6.7-8.2)
[2018-09-04] MEDS ORDERED: PROMETHAZINE INJ 12.5 MG in SODIUM CHLORIDE 0.9% 50 ML IV STA (12:42)
[2018-09-04 13:31] LABS: GLUCOSE, URINE (UA) NEGATIVE (NEGATIVE); KETONES,URINE (UA) 15 mg/dL (NEGATIVE); LEUKOCYTE ESTERASE, URINE NEGATIVE (NEGATIVE); NITRITE,URINE NEGATIVE (NEGATIVE); OCCULT BLOOD,URINE NEGATIVE (NEGATIVE); PH,URINE 6.5 PH (5.0-7.5); PROTEIN,URINE NEGATIVE (NEGATIVE); UROBILINOGEN,URINE 1 (NORMAL) E.U./dL (NORMAL)
--- NOTE | 2018-09-04 13:34 | Ultrasound Report ---
Reason: RUQ abdominal pain with bilirubin 8.3. Procedure Date: 09/04/2018 Accession Number: [id number] / [id number] Procedure: US - Abdomen Limited CPT Code: FULL RESULT: EXAM: ABDOMEN ULTRASOUND LIMITED, RUQ EXAM DATE: 09/04/2018 01:26 PM. CLINICAL HISTORY: Right upper quadrant abdominal pain, nausea and vomiting. COMPARISON: None. TECHNIQUE: Real-time scanning was performed with static images obtained. FINDINGS: Liver: The liver parenchyma is moderate to severely echogenic diffusely. No clear evidence for cirrhosis or mass lesion. Scattered microcalcifications may be present. The right lobe is prominent measuring up to 23 cm. Main portal vein flow: Hepatopetal. Gallbladder: Normal. No stones, wall thickening, or sonographic Ball's sign. Biliary System: CBD measures 3 mm. No intrahepatic or extrahepatic ductal dilatation. Other: The right kidney shows no calculi or hydronephrosis and measures 11.5 cm. IMPRESSION: 1. Moderate to severely fatty infiltrated and enlarged liver. 2. Scattered hepatic parenchymal calcifications, possibly granulomas. 3. Normal gallbladder. RADIA
[2018-09-04 13:37] LABS: CLARITY,URINE CLEAR (CLEAR); ICTOTEST,URINE POSITIVE
[2018-09-04 13:38] LABS: BILIRUBIN,URINE LARGE (NEGATIVE); HCG UR QUAL NEGATIVE
[2018-09-04] MEDS ORDERED: HYDROmorphone 1 MG/ML CARPUJECT IVP STA (13:55)
--- NOTE | 2018-09-04 14:06 | ED Physician Documentation ---
PD HPI ABD PAIN - Stated complaint Stated Complaint: ABD PX/UNABLE TO EAT OR DRINK - Chief complaint Chief Complaint: General - History obtained from History obtained from: Patient - History of Present Illness Timing - onset: How many weeks ago (1) Timing - details: Still present Quality: Pain Location: RUQ Associated symptoms: Nausea, Vomiting. No: Fever, Diarrhea, Dysuria Similar symptoms before: Diagnosis (The patient reports history of similar symptoms in the past with alcoholic gastritis.) - Additional information Additional information: The patient is a 38-year-old female who presents with upper abdominal pain that started 1 week ago and has been getting progressively worse. She reports associated nausea and vomiting. She denies fever, diarrhea, or dysuria. She has a history of chronic alcoholism, but has not been able to drink any alcohol because of her nausea and vomiting. She is concerned now about withdrawal. 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 Past surgical history is significant for x2. Review of Systems Constitutional: denies: Fever Ears: denies: Tinnitus/ringing Nose: denies: Congestion Throat: denies: Sore throat Cardiac: denies: Chest pain / pressure Respiratory: denies: Dyspnea, Cough GI: reports: Abdominal Pain, Nausea, Vomiting. denies: Diarrhea : denies: Dysuria Skin: denies: Rash Musculoskeletal: denies: Back pain Neurologic: reports: Headache (mild). 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: None : None HEENT: None Psych: Anxiety Musculoskeletal: None Derm: None - Past Surgical History Past Surgical History: Yes /VIDEO EDITING INTERNSHIP: section - Present Medications Home Medications: Ambulatory Orders Medication Instructions Recorded Confirmed Doxycycline Hyclate 100 mg PO BID 09/04/18 09/04/18 Norethindrone [Karuna-Be] 0.35 mg PO DAILY 09/04/18 09/04/18 - Allergies Allergies/Adverse Reactions: Allergies Allergy/AdvReac Type Severity Reaction Status Date / Time No Known Drug Allergies Allergy Verified 09/04/18 10:24 - Social History Does the pt smoke?: No Smoking Status: Never smoker Does the pt drink ETOH?: Yes ETOH Use: Wine Does the pt have substance abuse?: Yes - Immunizations Immunizations are current?: Yes - POLST Patient has POLST: No PD ED PE NORMAL - Vitals Vital signs reviewed: Yes (tachycardic) - General General: Alert and oriented X 3, Well developed/nourished, Other (Tremulous) - HEENT HEENT: Atraumatic, Pharynx benign, Other (anicteric sclera.) - Neck Neck: Supple, no meningeal sign, No adenopathy - Cardiac Cardiac: RRR - Respiratory Respiratory: No respiratory distress, Clear bilaterally - Abdomen Abdomen: Normal bowel sounds, Soft, Other (Tenderness to palpation RUQ. Hepatomegaly.) - Back Back: No CVA TTP - Derm Derm: No rash - Extremities Extremities: No edema, No calf tenderness / cord - Neuro Neuro: Alert and oriented X 3, No motor deficit, No sensory deficit Results - Vitals Vitals: Vital Signs - 24 hr 09/04/18 09/04/18 09/04/18 10:21 10:58 11:24 Temperature 36.9 C Heart Rate 122 H 97 103 H Respiratory 18 18 18 Rate Blood Pressure 120/98 H 141/101 H 136/86 H O2 Saturation 97 94 99 09/04/18 09/04/18 09/04/18 12:00 12:30 13:26 Temperature Heart Rate 102 H 125 H 124 H Respiratory 18 20 20 Rate Blood Pressure 132/92 H 128/84 H 142/104 H O2 Saturation 93 97 95 09/04/18 09/04/18 09/04/18 13:30 14:00 15:00 Temperature 37.1 C Heart Rate 102 H 114 H 103 H Respiratory 18 16 15 Rate Blood Pressure 136/90 H 137/85 H 125/93 H O2 Saturation 94 97 94 Oxygen O2 Source Room air - Labs Labs: Laboratory Tests 09/04/18 09/04/18 09/04/18 10:40 10:40 10:40 WBC 5.1 RBC 4.38 Hgb 14.2 Hct 39.7 MCV 90.6 MCH 32.4 H MCHC 35.8 RDW 14.8 Plt Count 79 L MPV 12.9 H Neut # (Auto) 3.4 Lymph # (Auto) 1.3 L [place] # (Auto) 0.4 Eos # (Auto) 0.1 Baso # (Auto) 0.0 Absolute Nucleated RBC 0.00 Nucleated RBC % 0.0 PT 13.0 H INR 1.2 Sodium 132 L Potassium 3.4 L Chloride 91 L Carbon Dioxide 17 L Anion Gap 24.0 H BUN 9 Creatinine 0.5 Estimated GFR (MDRD) 140 Glucose 119 H Calcium 8.8 Total Bilirubin 8.3 H AST 535 H ALT 243 H Alkaline Phosphatase 185 H Total Protein 7.1 Albumin 3.7 Globulin 3.4 Albumin/Globulin Ratio 1.1 Lipase 45 Urine Color Urine Clarity Urine pH Ur Specific [place] Urine Protein Urine Glucose (UA) Urine Ketones Urine Occult Blood Urine Nitrite Urine Bilirubin Urine Urobilinogen Ur Leukocyte Esterase Ur Microscopic Review Urine Culture Comments Urine HCG, Qual 09/04/18 13:25 WBC RBC Hgb Hct MCV MCH MCHC RDW Plt Count MPV Neut # (Auto) Lymph # (Auto) [place] # (Auto) Eos # (Auto) Baso # (Auto) Absolute Nucleated RBC Nucleated RBC % PT INR Sodium Potassium Chloride Carbon Dioxide Anion Gap BUN Creatinine Estimated GFR (MDRD) Glucose Calcium Total Bilirubin AST ALT Alkaline Phosphatase Total Protein Albumin Globulin Albumin/Globulin Ratio Lipase Urine Color DARK YELLOW Urine Clarity CLEAR Urine pH 6.5 Ur Specific [place] 1.020 Urine Protein NEGATIVE Urine Glucose (UA) NEGATIVE Urine Ketones 15 H Urine Occult Blood NEGATIVE Urine Nitrite NEGATIVE Urine Bilirubin LARGE H Urine Urobilinogen 1 (NORMAL) Ur Leukocyte Esterase NEGATIVE Ur Microscopic Review NOT INDICATED Urine Culture Comments NOT INDICATED Urine HCG, Qual NEGATIVE - Rads (name of study) RUQ U/S Radiology: Prelim report reviewed, EMP read contemporaneously, See rad report (Moderate to severely fatty infiltrated and enlarged liver. Scattered hepatic parenchymal calcifications, possibly granulomas. Normal gallbladder.) PD MEDICAL DECISION MAKING - ED course Complexity details: reviewed old records, reviewed results, re-evaluated patient, considered differential, d/w patient, d/w hr shared services consultant ED course: The patient's presentation is most consistent with alcoholic hepatitis, with elevated bilirubin of 8.3, AST 535, ALT 243, and alkaline phosphatase 185. Her meld score is 20. She has had vomiting and is dehydrated with tachycardia. Her exam is significant for right upper quadrant abdominal tenderness and hepatome atruro. Ultrasound of the right upper quadrant reveals no evidence of gallstone, and her common bile duct is normal diameter of 0.3 mm. Treatment in the emergency department included administration of normal saline 2 L IV plus another liter banana bag. Lorazepam 1 mg was administered IV, Phenergan 12.5 mg IV, and Dilaudid 1 IV. The patient's nausea and pain improved with the above treatment. I discussed her condition with Dr. Collins, senior telecommunications consultant with [facility]. He advises that she does not need to undergo transfer for ERCP since this appears to be alcoholic hepatitis and not common bile duct stone related. He does however recommend further treatment as warranted by her clinical condition, and recommends getting an MRI prior to discharge. I discussed her condition with Dr. Bauer, who accepts her for further evaluation and treatment. Departure - Departure Disposition: ED Place in Observation Clinical Impression: Alcohol abuse, Dehydration Alcoholic hepatitis Qualifiers: Ascites presence: unspecified Qualified Code(s): K70.10 - Alcoholic hepatitis without ascites Condition: Stable
[2018-09-04] MEDS ORDERED: ONDANSETRON ODT 4 MG TABLET TL PRN (16:13)
[2018-09-04] MEDS ORDERED: SODIUM CHLORIDE FLUSH 0.9% 10 ML SYRINGE IVP PRN (16:13)
[2018-09-04] MEDS ORDERED: ONDANSETRON 4 MG/2 ML VIAL IVP PRN (16:13)
[2018-09-04] MEDS ORDERED: PROCHLORPERAZINE 10 MG/2 ML VIAL IVP PRN (16:13)
[2018-09-04 16:37] LABS: BASOPHILS % (AUTO) 0.3 %; HGB - HEMOGLOBIN 11.7 g/dL (12.0-16.0); LYMPHOCYTES # (AUTO) 0.7 10^3/uL (1.5-3.5); LYMPHOCYTES % (AUTO) 19.4 %; MEAN CORPUSCULAR HEMOGLOBIN 32.6 pg (27.0-31.0); MEAN CORPUSCULAR HGB CONC 34.7 g/dL (32.0-36.0); MEAN CORPUSCULAR VOLUME 93.9 fL (81.0-99.0); MEAN PLATELET VOLUME 12.6 fL (7.9-10.8); MONOCYTES # (AUTO) 0.3 10^3/uL (0.0-1.0); MONOCYTES % (AUTO) 6.7 %; NEUTROPHILS # (AUTO) 2.7 10^3/uL (1.5-6.6); NEUTROPHILS % (AUTO) 73.3 %; PLT - PLATELET COUNT 61 10^3/uL (130-450); RED BLOOD COUNT 3.59 10^6/uL (4.20-5.40); RED CELL DISTRIBUTION WIDTH 14.9 % (12.0-15.0); WHITE BLOOD COUNT 3.7 x10^3/uL (4.8-10.8)
--- NOTE | 2018-09-04 16:37 | HISTORY & PHYSICAL EXAMINATION ---
Chief Complaint - Chief Complaint Chief Complaint: Stomach pain, Nausea, Vomiting History of Present Illness - Admitted From Admitted From:: Home - History Obtained From History obtained from: Patient, Chart Reivew - History of Present Illness HPI Comment/Other: This is a 38yo female with history of ETOH abuse who has presented to the ED in 09/2017, 11/2017, 03/2018 and 05/2018 prior to this visit today. Each time has been for alcohol withdrawal and requesting services for help, per prior documentation. Today she presents with 1 week of severe stomach pain, along the top of her abdomen that is a constant burning nature. Peak pain level of 8/10. She tried nothing at home to relieve the pain, and it is worsened by attempting to eat or drink. Her pain has improved mildly with 1mg of dilaudid given in ED. She began vomiting 2 days ago and reports vomiting multiple times throughout the day and with any attempt to eat or drink. There was one episode of vomiting yesterday where she noticed streaks of blood. She has constantly been nauseated. She has been laying in bed for the past two days and feels very weak and dehydrated. She denies any diarrhea, blood stools, dysuria, or sick contacts. She denies any other past medical history. She is currently quite anxious, de nies depression and denies any thoughts of harming herself or suicidal ideations. 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, Other (, she has had 2 births via and 1 ) : reports: None HEENT: reports: None, Chronic vision loss (wears corrective contact lenses) Psych: reports: Anxiety Musculoskeletal: reports: None Derm: reports: None, Psoriasis (she reports intermittent psoriasis like lesions, but is not aware of any active lesions at this time) MRSA Hx?: No - Past Surgical History /WATER ATTENDANT: reports: section (x2) - Family & Social History Family History: Mother: Alive and Well, Obesity (2 1/2 brothers), Father: Alive and Well, Obesity, Brother: Obesity Family History Comment/Other: The patient is somewhat estranged from her parents. She notes that they are obese, but does not think they have any diabetes, cardiac disease, or cancer. She has two half brothers, both also with obesity. Living arrangement: At home Living Situation: With spouse/s.o. Social History Notes: [place] [employer] and their 3 year old daughter Chyna. She has lived on [facility] for about 1 year. They have no family in the state. She reports episodes of binge drinking, about every few months (which matches her presentations to the ED for ETOH withdrawal). Drinks 8-12 glasses of wine per day when binging, then slowly tapers herself down to lesson side effects of withdrawal, then goes maybe 3 weeks without drinking before she begins to binge again. She reports a history of social cigarette smoking, but no current use. Denies marijuana, cocaine, me thanphetamines or other elicit drugs. She is , for almost 4 years. Together they have a 3year old daughter named Chyna. She also has a 19yo daughter who does not live with her. - Substance History Abuse: Recurrent use of substance despite neg consequences: Alcohol Dependence: Experiences withdrawal or developed tolerances: Alcohol Dependence Issues: Intoxication, Anxiety Disorder, Other (she denies any withdrawal seizures in the past) - POLST Patient has POLST: No Meds/Allgy - Home Medications Home Medications: Ambulatory Orders Medication Instructions Recorded Confirmed Doxycycline Hyclate 100 mg PO BID 09/04/18 09/04/18 Norethindrone [Karuna-Be] 0.35 mg PO DAILY 09/04/18 09/04/18 - Allergies Allergies/Adverse Reactions: Allergies Allergy/AdvReac Type Severity Reaction Status Date / Time No Known Drug Allergies Allergy Verified 09/04/18 10:24 Review of Systems - Constitutional Constitutional: reports: Fatigue, Chills, Weakness, Diaphoresis - Eyes Eyes: reports: Vision loss, Corrective lenses - Ears, Nose & Throat Ears, Nose & Throat: reports: Vertigo, Sore throat, Other (she notes a receeding gum line which she has been told she needs a graft for). denies: Tinnitus - Cardiovascular Cariovascular: reports: Lightheadedness. denies: Palpitations, Chest pain, Syncope - Respiratory Respiratory: reports: Cough. denies: Hemoptysis - Gastrointestinal Gastrointestinal: reports: Abdominal pain, Abdominal distention, Nausea, Vomiting (noted a streaking of blood on one episode yesterday). denies: Rectal bleeding, Bloody stools, Chuy blood emesis, Coffee grounds emesis - Genitourinary Genitourinary: denies: Dysuria, Frequency, Urgency, Hematuria - Musculoskeletal Musculoskeletal: reports: Muscle pain, Muscle aches, Muscle weakness - Neurological Neurological: reports: General weakness, Headache, Other (tingling in bilat hands x1 year, occurs upon awakening on nearly daily basis). denies: Seizures - Psychiatric Psychiatric: reports: Anxiety. denies: Depression, Suicidal, Delusions, Halluc inations, Homicidal - Hematologic/Lymphatic Hematologic/Lymphatic: reports: Bruising. denies: Blood clots, Bleeding tendencies - All Other Systems All Other Systems: reports: Reviewed and negative Prior Level of Functionality: Independent with ADLs and IADLs. Lives at home with and 3 year old daughter. Exam - Vital Signs Reviewed Vital Signs: Yes Vital Signs: Vital Signs x48h Temp Pulse Resp BP Pulse Ox 09/04/18 16:24 93 17 121/88 H 96 09/04/18 15:00 37.1 C 103 H 15 125/93 H 94 09/04/18 14:00 114 H 16 137/85 H 97 09/04/18 13:30 102 H 18 136/90 H 94 09/04/18 13:26 124 H 20 142/104 H 95 09/04/18 12:30 125 H 20 128/84 H 97 09/04/18 12:00 102 H 18 132/92 H 93 09/04/18 11:24 103 H 18 136/86 H 99 09/04/18 10:58 97 18 141/101 H 94 09/04/18 10:21 36.9 C 122 H 18 120/98 H 97 - Physical Exam General Appearance: positive: Alert, Mild distress, Anxious, Other (This is a mildly obese women, she is seen laying in bed on her side, frequently dry heaving) Eyes Bilateral: positive: Normal inspection, PERRL, EOMI, No lid inflammation, Conjunctivae nml, Other (mild scleral icterus) ENT: positive: Pharyngeal erythema, Dry mucous membranes Neck: positive: Nml inspection, No JVD. negative: Stiff neck Respiratory: positive: Chest non-tender, No respiratory distress, Breath sounds nml Cardiovascular: positive: No murmur, No gallop, Tachycardia. negative: JVD present Peripheral Pulses: positive: 1+ Abdomen: positive: Tenderness (most tender in RUQ, but mild tenderness throughout), Guarding, Hepatomegaly, Other (distention but without fluid shift or fluid wave). negative: Rebound, Splenomegaly Skin: positive: No rash, Warm, Diaphoresis, Other (mild jaundice) Extremities: positive: Non-tender, Full ROM, Nml appearance, No pedal edema. negative: Calf tenderness, Joint swelling, Tania's sign/cords Neurologic/Psychiatric: positive: Oriented x3, CN's nml (2-12), Sensation nml, Weakness, Other (tremors to BUEs) Reflexes: Knee (R): 3+, Knee (L): 3+, Ankle (R): 3+, Ankle (L): 3+ Comments/Other: No clonus. No asterixis Conclusion/Plan - Problem List (1) Alcoholic hepatitis Conclusion/Plan: AST 454, ALT 194, and ratio >2:1, and total bili elevated to 8.3, all suggestive to alcoholic hepatitis. She does not present with a leukocytosis, and her INR is WNL. No current signs of a hepato-renal syndrome with stable Cr of 0.5 and no significant nutritional deficiencies at this time, though she is mildly anemic. Abdominal US shows moderate to severely fatty infiltrated and enlarged liver and scattered calcifications, possibly granulomas. MELD-Na score: 21points; associated with a 7-10% estimated 90 day mortality Maddrey's Discriminant Function: 10.6, indicating good prognosis and no indication for use of glucocorticoids. Plan: -Supportive care with IV hydration, pain and nausea control -Strong encouragement to cease all ETOH consumption and explore options for detox and rehab -Involve social work for community resources and encourage patient to seek help from [employer] and benefits Qualifiers: Ascites presence: unspecified Qualified Code(s): K70.10 - Alcoholic hepatitis without ascites (2) Alcohol abuse Conclusion/Plan: As previously mentioned, this is the patient's 5th presentation with ETOH withdrawal in less than 1 year. Plan: -As per above, involve SW to provide resources -Cont' to encourage no further ETOH use -For prophylactic nutritional support- start daily multivitamin supplement w/ thiamine + folic acid (3) Dehydration Conclusion/Plan: Vomiting and little to no PO intake >2 days. Mild hyponatremia, hypokalemia, and anion gap of 14. Received 1L Banana bag in ED. Plan: -LR continuous infusion at 100cc/hour -Mg repletion IV once -Repeat BMP, Mg, Phos levels in AM - Lab Results Lab results reviewed: Yes Fish Bones: 09/04/18 16:30 09/04/18 16:30 Other Lab Results: Laboratory Results - last 24 hr 09/04/18 09/04/18 09/04/18 10:40 10:40 10:40 WBC 5.1 RBC 4.38 Hgb 14.2 Hct 39.7 MCV 90.6 MCH 32.4 H MCHC 35.8 RDW 14.8 Plt Count 79 L MPV 12.9 H Neut # (Auto) 3.4 Lymph # (Auto) 1.3 L [place] # (Auto) 0.4 Eos # (Auto) 0.1 Baso # (Auto) 0.0 Absolute Nucleated RBC 0.00 Nucleated RBC % 0.0 PT 13.0 H INR 1.2 Sodium 132 L Potassium 3.4 L Chloride 91 L Carbon Dioxide 17 L Anion Gap 24.0 H BUN 9 Creatinine 0.5 Estimated GFR (MDRD) 140 Glucose 119 H Calcium 8.8 Total Bilirubin 8.3 H AST 535 H ALT 243 H Alkaline Phosphatase 185 H Total Protein 7.1 Albumin 3.7 Globulin 3.4 Albumin/Globulin Ratio 1.1 Lipase 45 Urine Color Urine Clarity Urine pH Ur Specific [place] Urine Protein Urine Glucose (UA) Urine Ketones Urine Occult Blood Urine Nitrite Urine Bilirubin Urine Urobilinogen Ur Leukocyte Esterase Ur Microscopic Review Urine Culture Comments Urine HCG, Qual 09/04/18 09/04/18 09/04/18 13:25 16:30 16:30 WBC 3.7 L RBC 3.59 L Hgb 11.7 L Hct 33.7 L MCV 93.9 MCH 32.6 H MCHC 34.7 RDW 14.9 Plt Count 61 L MPV 12.6 H Neut # (Auto) 2.7 Lymph # (Auto) 0.7 L [place] # (Auto) 0.3 Eos # (Auto) 0.0 Baso # (Auto) 0.0 Absolute Nucleated RBC 0.00 Nucleated RBC % 0.0 PT 13.1 H INR 1.2 Sodium Potassium Chloride Carbon Dioxide Anion Gap BUN Creatinine Estimated GFR (MDRD) Glucose Calcium Total Bilirubin AST ALT Alkaline Phosphatase Total Protein Albumin Globulin Albumin/Globulin Ratio Lipase Urine Color DARK YELLOW Urine Clarity CLEAR Urine pH 6.5 Ur Specific [place] 1.020 Urine Protein NEGATIVE Urine Glucose (UA) NEGATIVE Urine Ketones 15 H Urine Occult Blood NEGATIVE Urine Nitrite NEGATIVE Urine Bilirubin LARGE H Urine Urobilinogen 1 (NORMAL) Ur Leukocyte Esterase NEGATIVE Ur Microscopic Review NOT INDICATED Urine Culture Comments NOT INDICATED Urine HCG, Qual NEGATIVE 09/04/18 16:30 WBC RBC Hgb Hct MCV MCH MCHC RDW Plt Count MPV Neut # (Auto) Lymph # (Auto) [place] # (Auto) Eos # (Auto) Baso # (Auto) Absolute Nucleated RBC Nucleated RBC % PT INR Sodium 134 L Potassium 3.4 L Chloride 100 L Carbon Dioxide 20 L Anion Gap 14.0 H BUN 8 Creatinine 0.4 Estimated GFR (MDRD) 181 Glucose 107 H Calcium 7.4 L Total Bilirubin 8.4 H AST 454 H ALT 194 H Alkaline Phosphatase 145 H Total Protein 5.6 L Albumin 3.0 L Globulin 2.6 Albumin/Globulin Ratio 1.2 Lipase Urine Color Urine Clarity Urine pH Ur Specific [place] Urine Protein Urine Glucose (UA) Urine Ketones Urine Occult Blood Urine Nitrite Urine Bilirubin Urine Urobilinogen Ur Leukocyte Esterase Ur Microscopic Review Urine Culture Comments Urine HCG, Qual - Diagnostic Imaging Results Diagnostic Imaging Results: positive: Final report reviewed Diagnostic Imaging Results Comments: Abdominal US 09/04/18 in ED: IMPRESSION: 1. Moderate to severely fatty infiltrated and enlarged liver. 2. Scattered hepatic parenchymal calcifications, possibly granulomas. 3. Normal gallbladder. Core Measures - Anticipated LOS I expect patient to be DC'd or transferred within 96 hours.: Yes - DVT/VTE - Prophylaxis VTE/DVT Device ordered at admit?: Yes
[2018-09-04 17:00] LABS: BILIRUBIN,TOTAL 8.4 mg/dL (0.2-1.0); CALCIUM 7.4 mg/dL (8.5-10.3); CREATININE 0.4 mg/dL (0.4-1.0)
[2018-09-04] MEDS ORDERED: MAGNESIUM SULFATE 2 GRAM 2 GM/50 ML BAG IV ONE (17:00)
[2018-09-04] MEDS ORDERED: LACTATED RINGERS 1,000 ML IV SCH (17:00)
[2018-09-04 17:01] LABS: ALBUMIN/GLOBULIN RATIO 1.2 (1.0-2.2); TOTAL PROTEIN 5.6 g/dL (6.7-8.2)
[2018-09-04 17:02] LABS: INR 1.2 (0.8-1.2); PT - PROTHROMBIN TIME 13.1 secs (9.9-12.6)
[2018-09-04] MEDS: oxyCODONE 5 MG TABLET PO PRN ×2 (17:38→21:39)
[2018-09-04] MEDS: SODIUM CHLORIDE FLUSH 0.9% 10 ML SYRINGE IVP SCH (17:38)
[2018-09-04] MEDS: PANTOPRAZOLE 40 MG VIAL IVP SCH (17:38)
[2018-09-04] MEDS: LORazepam 2 MG/ML VIAL IVP PRN ×2 (18:02→22:48)
[2018-09-04] MEDS: LACTATED RINGERS 1,000 ML IV SCH (18:16)
[2018-09-04] MEDS ORDERED: SODIUM CHLORIDE FLUSH 0.9% 10 ML SYRINGE ONE (22:03)
[2018-09-04] MEDS: ONDANSETRON 4 MG/2 ML VIAL IVP PRN (22:48)
[2018-09-05] MEDS: SODIUM CHLORIDE FLUSH 0.9% 10 ML SYRINGE IVP SCH ×2 (01:27→08:24)
[2018-09-05] MEDS: LORazepam 2 MG/ML VIAL IVP PRN ×3 (02:50→12:06)
[2018-09-05] MEDS: ONDANSETRON 4 MG/2 ML VIAL IVP PRN ×3 (02:54→12:07)
[2018-09-05] MEDS: oxyCODONE 5 MG TABLET PO PRN ×3 (03:09→12:07)
[2018-09-05 04:51] LABS: BASOPHILS % (AUTO) 0.4 %; EOSINOPHILS % (AUTO) 0.4 %; HGB - HEMOGLOBIN 10.9 g/dL (12.0-16.0); LYMPHOCYTES # (AUTO) 0.4 10^3/uL (1.5-3.5); LYMPHOCYTES % (AUTO) 14.6 %; MEAN CORPUSCULAR HEMOGLOBIN 31.7 pg (27.0-31.0); MEAN CORPUSCULAR HGB CONC 32.1 g/dL (32.0-36.0); MEAN CORPUSCULAR VOLUME 98.8 fL (81.0-99.0); MONOCYTES # (AUTO) 0.1 10^3/uL (0.0-1.0); MONOCYTES % (AUTO) 4.1 %; NEUTROPHILS # (AUTO) 2.1 10^3/uL (1.5-6.6); NEUTROPHILS % (AUTO) 80.1 %; PLT - PLATELET COUNT 53 10^3/uL (130-450); RED BLOOD COUNT 3.44 10^6/uL (4.20-5.40); RED CELL DISTRIBUTION WIDTH 14.8 % (12.0-15.0); WHITE BLOOD COUNT 2.7 x10^3/uL (4.8-10.8)
[2018-09-05 05:13] LABS: CREATININE 0.4 mg/dL (0.4-1.0); RBC MORPHOLOGY (MULTIPLE) 2+ HYPOCHROMASIA (NORMAL)
[2018-09-05 05:14] LABS: ALBUMIN 2.9 g/dL (3.2-5.5); BILIRUBIN,TOTAL 11.3 mg/dL (0.2-1.0); CALCIUM 7.3 mg/dL (8.5-10.3); TOTAL PROTEIN 5.8 g/dL (6.7-8.2)
[2018-09-05 05:15] LABS: PLATELET MORPHOLOGY NORMAL APPEARANCE (NORMAL)
[2018-09-05 05:17] LABS: PLATELET ESTIMATE, MANUAL DECREASED (<130,000) (NORMAL)
[2018-09-05] MEDS ORDERED: POTASSIUM CHLORIDE INJ 40 MEQ in SODIUM CHLORIDE 0.9% 480 ML IV ONE (06:26)
[2018-09-05] MEDS: LACTATED RINGERS 1,000 ML IV SCH (06:40)
[2018-09-05] MEDS: PANTOPRAZOLE 40 MG VIAL IVP SCH (06:40)
[2018-09-05 07:59] VITALS: BP 117/65
[2018-09-05] MEDS ORDERED: MULTIVITAMIN 10 ML, THIAMINE INJ 100 MG, FOLIC ACID INJ 1 MG in SODIUM CHLORIDE 0.9% 1,... IV SCH (09:00)
[2018-09-05] MEDS ORDERED: POLYETHYLENE GLYCOL 3350 17 GM PACKET PO SCH (09:00)
--- NOTE | 2018-09-05 09:57 | DISCHARGE SUMMARY ---
"<Deejay Coleman - Last Filed: 09/05/18 14:35> Discharge Summary Admit Date: 09/04/18 Discharging Provider: Dr. Naa Bauer MD Code Status: Attempt Resuscitation Condition at Discharge: Fair Discharge Disposition: 01 Home, Self Care - DIAGNOSES Admission Diagnoses: Alcoholic Hepatitis Alcohol Abuse Dehydration Discharge Diagnoses with Status of Each Condition: (1) Alcoholic hepatitis Conclusion/Plan: AST ALT elevated 400s/100s respectively. Bili increased from 8 on admit to 11 today. No ascites, no fluid wave. Will require a referral from PCP to hepatology for close follow up. (2) Alcohol abuse Conclusion/Plan: 5th presentation to [facility] ED in less than a year. She has been DC'd from the ED to inpatient rehab before, but left without finishing treatment. SW has provided more resources. She has been advised that she MUST stop all ETOH use. (3) Dehydration Conclusion/Plan: Nausea and vomiting controlled. Tolerating liquids. Electrolytes have been repleted. Multivit w/ thiamine and folate added to med list. Dietition has provided patient with nutritional education in setting of ETOH related malnutrition. (4) Hypokalemia Has received IV repletion. Will require repeat labs and close follow up with PCP - HPI History of Present Illness: This is a 38yo female with history of ETOH abuse who has presented to the ED in 09/2017, 11/2017, 03/2018 and 05/2018 prior to this encounter. Each time has been for alcohol withdrawal and requesting services for help, per prior d ocumentation. She presents with 1 week of severe stomach pain, along the top of her abdomen that is a constant burning nature. Peak pain level of 8/10. She tried nothing at home to relieve the pain, and it is worsened by attempting to eat or drink. Her pain has improved mildly with 1mg of dilaudid given in ED. She began vomiting 2 days ago and reports vomiting multiple times throughout the day and with any attempt to eat or drink. There was one episode of vomiting yesterday where she noticed streaks of blood. She has constantly been nauseated. She has been laying in bed for the past two days and feels very weak and dehydrated. She denies any diarrhea, blood stools, dysuria, or sick contacts. She denies any other past medical history. She is currently quite anxious, denies depression and denies any thoughts of harming herself or suicidal ideations. Today, she reports nausea is well controlled. No more episodes of emesis. She was able to tolerate clear liquids last night. Feels her tremors and anxiety are better controlled on the ativan. - CONSULTS | PROCEDURES Consultations: Hepatology-phone consultation Dr. Valencia Procedures: Abdominal US 09/04/2018: 1. Moderate to severely fatty liver infiltrated and enlarged liver. The right lobe is prominent measuring up to 23cm. No clear evidence of cirrhosis or mass lesion. 2. Scattered hepatic parenchymal calcifications, possibly granulomas. 3. Normal gallbladder. CBD measures 3mm, no intrahepatic or extrahepatic ductal dilation. - HOSPITAL COURSE Hospital Course: Presented to the ED on 09/04/2018. Was admitted for OBS given elevated bili at 8, elevated transaminases and a MELD score of 20 with tachycardia unresolved by 3L of fluids in ED. She was given additional IV hydration and has received another 1L banana bag and 1L LR. Her tachycardia has resolved to a HR in 80s-90s. She was given a clear liquid diet, with advance as tolerate. Hepatology was consulted in regards to guidance of medical management. Due to no biliary obstruction and no ascitic fluid to tap, the patient is safe to discharge but requires follow up by PCP as soon as possible for a referral to hepatology. She has been seen by who has provided additional resources for alcoholic treatments. Summer reports she has coping mechanisms outside of alcohol abuse such as going to AA meetings and talking with a therapist from [place], although she had recently stopped both of these things. She reports that her does not drink, and that he is supportive and encouraging of her to quit drinking. At this time, she is refusing to go to inpatient rehab as she does not want to be away from her 3 year old daughter. - ALLERGIES Allergies/Adverse Reactions: Allergies Allergy/AdvReac Type Severity Reaction Status Date / Time No Known Drug Allergies Allergy Verified 09/04/18 10:24 - MEDICATIONS Home Medications: Ambulatory Orders Medication Instructions Recorded Confirmed Doxycycline Hyclate 100 mg PO BID 09/04/18 09/04/18 Folic Acid 1 mg PO DAILY #30 tablet 09/05/18 LORazepam [Ativan] 1 mg PO TID PRN #6 tablet 09/05/18 Ondansetron Odt [Zofran Odt] 4 mg TL Q6HR PRN #30 tablet 09/05/18 Thiamine [Vitamin B-1] 100 mg PO DAILY #30 tablet 09/05/18 oxyCODONE [Roxicodone] 5 mg PO Q4HR PRN #6 tablet 09/05/18 - PHYSICAL EXAM AT DISCHARGE General Appearance: positive: No acute distress, Alert Eyes Bilateral: positive: PERRL, EOMI, No lid inflammation, Other (Scleral icterus ) ENT: positive: ENT inspection nml, No signs of dehydration, Pharyngeal erythema Neck: positive: Nml inspection, No JVD Respiratory: positive: Chest non-tender, No respiratory distress Cardiovascular: positive: Regular rate & rhythm, No murmur, No gallop Peripheral Pulses: positive: 2+ Abdomen: positive: Non-tender, Nml bowel sounds, Hepatomegaly, Other (distention without ascites. No fluid wave). negative: Guarding, Rebound Back: positive: Nml inspection. negative: CVA tenderness (R), CVA tenderness (L) Skin: positive: No rash, Warm, Dry, Other (Jaundice). negative: Diaphoresis Extremities: positive: Non-tender, Full ROM, Nml appearance, No pedal edema. negative: Calf tenderness Neurologic/Psychiatric: positive: Oriented x3, CN's nml (2-12), Motor nml, Sensation nml, Mood/affect nml, Other (Fine tremor gone ) - LABS Result Diagrams: 09/05/18 04:35 09/05/18 04:35 Other Lab Results: Laboratory Results - last 24 hr 09/04/18 09/04/18 09/04/18 10:40 10:40 10:40 WBC 5.1 RBC 4.38 Hgb 14.2 Hct 39.7 MCV 90.6 MCH 32.4 H MCHC 35.8 RDW 14.8 Plt Count 79 L MPV 12.9 H Neut # (Auto) 3.4 Lymph # (Auto) 1.3 L [place] # (Auto) 0.4 Eos # (Auto) 0.1 Baso # (Auto) 0.0 Absolute Nucleated RBC 0.00 Nucleated RBC % 0.0 Manual Slide Review WBC Morphology Platelet Estimate Platelet Morphology RBC Morph Micro Appear PT 13.0 H INR 1.2 Sodium 132 L Potassium 3.4 L Chloride 91 L Carbon Dioxide 17 L Anion Gap 24.0 H BUN 9 Creatinine 0.5 Estimated GFR (MDRD) 140 Glucose 119 H Calcium 8.8 Magnesium Total Bilirubin 8.3 H AST 535 H ALT 243 H Alkaline Phosphatase 185 H Total Protein 7.1 Albumin 3.7 Globulin 3.4 Albumin/Globulin Ratio 1.1 Lipase 45 Urine Color Urine Clarity Urine pH Ur Specific [place] Urine Protein Urine Glucose (UA) Urine Ketones Urine Occult Blood Urine Nitrite Urine Bilirubin Urine Urobilinogen Ur Leukocyte Esterase Ur Microscopic Review Urine Culture Comments Urine HCG, Qual 09/04/18 09/04/18 09/04/18 13:25 16:30 16:30 WBC 3.7 L RBC 3.59 L Hgb 11.7 L Hct 33.7 L MCV 93.9 MCH 32.6 H MCHC 34.7 RDW 14.9 Plt Count 61 L MPV 12.6 H Neut # (Auto) 2.7 Lymph # (Auto) 0.7 L [place] # (Auto) 0.3 Eos # (Auto) 0.0 Baso # (Auto) 0.0 Absolute Nucleated RBC 0.00 Nucleated RBC % 0.0 Manual Slide Review WBC Morphology Platelet Estimate Platelet Morphology RBC Morph Micro Appear PT 13.1 H INR 1.2 Sodium Potassium Chloride Carbon Dioxide Anion Gap BUN Creatinine Estimated GFR (MDRD) Glucose Calcium Magnesium Total Bilirubin AST ALT Alkaline Phosphatase Total Protein Albumin Globulin Albumin/Globulin Ratio Lipase Urine Color DARK YELLOW Urine Clarity CLEAR Urine pH 6.5 Ur Specific [place] 1.020 Urine Protein NEGATIVE Urine Glucose (UA) NEGATIVE Urine Ketones 15 H Urine Occult Blood NEGATIVE Urine Nitrite NEGATIVE Urine Bilirubin LARGE H Urine Urobilinogen 1 (NORMAL) Ur Leukocyte Esterase NEGATIVE Ur Microscopic Review NOT INDICATED Urine Culture Comments NOT INDICATED Urine HCG, Qual NEGATIVE 09/04/18 09/05/18 09/05/18 16:30 04:35 04:35 WBC 2.7 L RBC 3.44 L Hgb 10.9 L Hct 34.0 L MCV 98.8 MCH 31.7 H MCHC 32.1 RDW 14.8 Plt Count 53 L MPV 13.0 H Neut # (Auto) 2.1 Lymph # (Auto) 0.4 L [place] # (Auto) 0.1 Eos # (Auto) 0.0 Baso # (Auto) 0.0 Absolute Nucleated RBC 0.00 Nucleated RBC % 0.0 Manual Slide Review Indicated WBC Morphology NORMAL APPEARANCE Platelet Estimate DECREASED (<130,000) Platelet Morphology NORMAL APPEARANCE RBC Morph Micro Appear 2+ HYPOCHROMASIA PT INR Sodium 134 L 134 L Potassium 3.4 L 3.2 L Chloride 100 L 98 L Carbon Dioxide 20 L 23 Anion Gap 14.0 H 13.0 BUN 8 6 Creatinine 0.4 0.4 Estimated GFR (MDRD) 181 181 Glucose 107 H 111 H Calcium 7.4 L 7.3 L Magnesium Total Bilirubin 8.4 H 11.3 H AST 454 H 426 H ALT 194 H 184 H Alkaline Phosphatase 145 H 138 H Total Protein 5.6 L 5.8 L Albumin 3.0 L 2.9 L Globulin 2.6 2.9 Albumin/Globulin Ratio 1.2 1.0 Lipase Urine Color Urine Clarity Urine pH Ur Specific [place] Urine Protein Urine Glucose (UA) Urine Ketones Urine Occult Blood Urine Nitrite Urine Bilirubin Urine Urobilinogen Ur Leukocyte Esterase Ur Microscopic Review Urine Culture Comments Urine HCG, Qual 09/05/18 04:35 WBC RBC Hgb Hct MCV MCH MCHC RDW Plt Count MPV Neut # (Auto) Lymph # (Auto) [place] # (Auto) Eos # (Auto) Baso # (Auto) Absolute Nucleated RBC Nucleated RBC % Manual Slide Review WBC Morphology Platelet Estimate Platelet Morphology RBC Morph Micro Appear PT INR Sodium Potassium Chloride Carbon Dioxide Anion Gap BUN Creatinine Estimated GFR (MDRD) Glucose Calcium Magnesium 1.9 Total Bilirubin AST ALT Alkaline Phosphatase Total Protein Albumin Globulin Albumin/Globulin Ratio Lipase Urine Color Urine Clarity Urine pH Ur Specific [place] Urine Protein Urine Glucose (UA) Urine Ketones Urine Occult Blood Urine Nitrite Urine Bilirubin Urine Urobilinogen Ur Leukocyte Esterase Ur Microscopic Review Urine Culture Comments Urine HCG, Qual - DIAGNOSTIC IMAGING Diagnostic Imaging Results Comments: MRCP results: <Naa Bauer - Last Filed: 09/05/18 18:57> Discharge Summary - DIAGNOSES Discharge Diagnoses with Status of Each Condition: (1) Alcoholic hepatitis Discussed with [facility] med consult line. I spoke to Dr. Luis Eduardo Carter and he felt that as long she did not have a common bile duct stone, or ascites that needed paracentesis, the patient could go home. Her abdominal ultrasound shows no ascites, and common bile duct is 3 mm. However, he stressed many times that the patient needed to be followed up as soon as possible with her primary care provider with referral to a termite control representative. The rest of her discharge dianosis are as stated. (2) Alcohol abuse (3) Alcohol withdrawal (4) Dehydration (5) Hypokalemia - CONSULTS | PROCEDURES Consultations: Hepatology-phone consultation Dr. Luis Eduardo Carter - PHYSICAL EXAM AT DISCHARGE Physical Exam Other/Comments: Patient has been seen and examined with [facility] student. Discharge data reviewed and correct. Exam is that of an icteric, tremulous moderately overweight white female. During her stay she has not been hypertensive. At discharge blood pressure 11 7/65, 98 heart rate, temperature 36.8 and 97% on room air. She is alert and oriented. Able to answer questions and follow commands. Head and neck is unremarkable Lungs are clear to auscultation and percussion without tachypnea respiratory effort Abdomen is soft, nontender, hepato-megaly palpable, no fluid wave Extremities are warm without clubbing cyanosis or edema Ambulation is without ataxia or orthostatic dizziness - LABS Result Diagrams: 09/05/18 04:35 09/05/18 04:35"
--- NOTE | 2018-09-05 12:28 | Discharge Plan ---
Discharge Plan Problem Reviewed?: Yes Disposition: Home, Self Care Condition: Fair Prescriptions: oxyCODONE [Roxicodone] 5 mg PO Q4HR PRN #6 tablet PRN Reason: Pain 5 to 7 Ondansetron Odt [Zofran Odt] 4 mg TL Q6HR PRN #30 tablet PRN Reason: Nausea / Vomiting Folic Acid 1 mg PO DAILY #30 tablet LORazepam [Ativan] 1 mg PO TID PRN #6 tablet PRN Reason: Alcohol Withdrawal Thiamine [Vitamin B-1] 100 mg PO DAILY #30 tablet Diet: Low Sodium Activity Restrictions: Activity as Tolerated Shower Restrictions: No Driving Restrictions: No Health Concerns: You were admitted because of intractable nausea and vomiting with generalized abdominal pain associated with alcoholic liver disease and alcoholic Hepatitis. Sometimes abdominal pain in these cases is associated with an acute gallbladder infection or a common bile ducts gallbladder stone. However your ultrasound shows none of that. You were treated with nausea medicines, IV fluids, and vitamins Plan of Treatment: He received thiamine, folate, Zofran, IV fluids to hydrate you. You are still with some mild abdominal pain and are asking for opiates. Unfortunately you cannot take Tylenol or any nonsteroidal for pain at this time because of your liver. Care Goals: 1. Now that your nausea, vomiting, and generalized abdominal pain is controlled, You can go home. Emphasize low-fat, clear liquids initially. Make sure you drink 1 L of fluid a day. Make sure you take thiamine and folate daily. 2. Please see your primary care provider in follow-up at the [facility]. That provider needs to make sure you see a liver specialist/election supervisor as soon as possible 3. You must stop drinking. If you do not stop drinking, even 1 drink may kill you the next time because of how severely injured your liver is right now 4. I have prescribed 6 tablets of oxycodone. This is 1 tablet 2-3 times a day as needed for pain. 5. You will be sent home with 2 days of Ativan to help any tremors or withdrawal you still may be having from alcohol. Assessment: You have expressed understanding that the next time he drink alcohol this may be lethal and failed to you. You have stated that you plan on following through with a care plan including rehabilitation, no drinking, and following through with your primary care provider to see a liver specialist. No Smoking: If you smoke, Please STOP! Call for help. Follow-up with: Kevan Mckeon MD [Primary Care Provider] -
== END 2018-09-05 14:04 | disposition home or self-care (01) ==
LOC: ED 10:15 → MS2 16:13
PROVIDERS: ADMIT Specialist; ATTEND Specialist
DX: K70.10 Alcoholic hepatitis without ascites (principal); F10.239 Alcohol dependence with withdrawal, unspecified; E86.0 Dehydration; E87.6 Hypokalemia; E87.1 Hypo-osmolality and hyponatremia; F10.280 Alcohol dependence with alcohol-induced anxiety disorder; E66.9 Obesity, unspecified; Z87.19 Personal history of other diseases of the digestive system; Z87.891 Personal history of nicotine dependence; Z68.32 Body mass index [BMI] 32.0-32.9, adult
CPT/HCPCS: 36415; 76705; 80053; 81003; 81025; 83690; 83735; 85025; 85610; 96361; 96365; 96366; 96367; 96368; 96375; 96376; 99284; 99285; A9270; G0378; J1170; J2060; J3411; J7040; J7120; 81001; 87086

== ENCOUNTER 2018-09-07 | Emergency (ER) | payer OTHER | END 2018-09-07 16:50 | disposition home or self-care (01) | DX: K70.10 Alcoholic hepatitis without ascites (principal) | CPT/HCPCS: 36415; 80053; 80320; 81001; 81003; 81025; 82140; 82247; 82248; 83690; 85025; 85610; 87086; 99283 ==